=== PATIENT | female | born 1945 | race Caucasian/White ===

== ENCOUNTER 2023-04-07 14:13 | Emergency (ER) | payer OTHER, MEDICAID ==
[~2023-04-07] VITALS: Ht 154.9 cm; Wt 67.8 kg
[~2023-04-07 14:13] MED LIST: ALPR2TAB2 PO; LOSA-415 PO; METF500T PO; TRAM200T4 PO; ZOLP10TA PO
[2023-04-07] MEDS ORDERED: NAPR-56 PO (16:15)
[2023-04-07] MEDS ORDERED: AMOX-117 PO (16:15)
[2023-04-07 16:44] VITALS: BP 140/83; PULSE 97; TEMP 98.3; O2SAT 95
[2023-04-07 16:48] VITALS: RESP 16
--- NOTE | 2023-04-07 17:57 | NUR ---
DISPATCH OFFICER ASSESSMENT REVIEWED BY CHET RN; APPROVED
== END 2023-04-07 16:58 | disposition home or self-care (01) ==
LOC: ER 14:14
DX: K04.7 Periapical abscess without sinus (principal); I10 Essential (primary) hypertension; E11.9 Type 2 diabetes mellitus without complications; M19.90 Unspecified osteoarthritis, unspecified site; Z88.5 Allergy status to narcotic agent; Z79.899 Other long term (current) drug therapy
CPT/HCPCS: 99283